=== PATIENT | male | born 1940 | race Caucasian/White ===

== ENCOUNTER 2022-07-07 11:24 | Inpatient (IN) | payer MEDICARE, BC ==
[~2022-07-07] VITALS: Ht 190.5 cm; Wt 54.9 kg
[2022-07-07] MEDS ORDERED: TAZOBACTAM IV ONE (12:00)
[2022-07-07] MEDS ORDERED: PIPERACILLIN IV ONE (12:00)
[2022-07-07] MEDS ORDERED: SODIUM CHLORIDE 0.9% IV ONE (12:00)
[2022-07-07] MEDS ORDERED: Vancomycin IV 1 GM in SODIUM CHLORIDE 0.9% 250ML 250 ML IV ONE (12:00)
[2022-07-07] MEDS ORDERED: ATORVASTATIN CA40 MG (12:01)
[2022-07-07] MEDS ORDERED: LISINOPRIL10 MG (12:01)
[2022-07-07] MEDS ORDERED: PLAVIX75 MG PO (12:01)
[2022-07-07] MEDS ORDERED: CARVEDILOL3.125 MG (12:01)
[2022-07-07] MEDS ORDERED: TRAZODONE HCL50 MG PO (12:01)
[2022-07-07] MEDS ORDERED: FLOMAX0.4 MG (12:01)
[2022-07-07] MEDS ORDERED: CILOSTAZOL50 MG PO (12:01)
[2022-07-07] MEDS ORDERED: SODIUM CHLORIDE FLUSH 10 ML SYR INJ PRN (12:30)
[2022-07-07 13:10] LABS: BASOPHILS % 0.5 % (0.0-1.0); EOSINOPHILS % 0.5 % (0.0-6.0); HEMATOCRIT 27.5 % (38.2-49.6); HEMOGLOBIN 8.1 g/dL (14.0-18.0); LYMPHOCYTES # (AUTO) 0.6 (1.0-3.2); LYMPHOCYTES % 7.6 % (18.0-39.1); MEAN CORPUSCULAR HEMOGLOBIN 24.8 pg (28-32); MEAN CORPUSCULAR HGB CONC 29.5 g/dL (31-35); MEAN CORPUSCULAR VOLUME 84.4 fL (81-99); MONOCYTES # (AUTO) 0.6 (0.2-0.8); MONOCYTES % 6.9 % (4.4-11.3); NEUTROPHILS # (AUTO) 6.8 (2.1-6.9); PLATELET COUNT 435 x10e3/uL (140-360); RED BLOOD COUNT 3.26 x10e6/uL (4.3-5.7); RED CELL DISTRIBUTION WIDTH 16.7 % (11.7-14.4)
[2022-07-07] MEDS: Morphine 2mg Syringe 2 MG/ML SYR IV PRN ×2 (13:19→23:15)
[2022-07-07] MEDS: ONDANSETRON HCL INJ 2MG/ML 2ML 2 MG/ML VIAL IV PRN ×2 (13:19→23:15)
[2022-07-07 13:29] LABS: ALANINE AMINOTRANSFERASE 15 IU/L (0-55); ALBUMIN/GLOBULIN RATIO 0.5 (0.8-2.0); ALKALINE PHOSPHATASE 133 IU/L (40-150); ANION GAP 15.3 mmol/L (8-16); BLOOD UREA NITROGEN 7 mg/dL (7-26); BUN/CREATININE RATIO 13 (6-25); CALCIUM 8.2 mg/dL (8.4-10.2); CARBON DIOXIDE 24 mmol/L (22-29); CHLORIDE 100 mmol/L (98-107); CREATINE KINASE 53 IU/L (30-200); CREATININE, SERUM 0.56 mg/dL (0.72-1.25); GLUCOSE 100 mg/dL (74-118); POTASSIUM 4.3 mmol/L (3.5-5.1); SODIUM 135 mmol/L (136-145)
[2022-07-07 13:32] LABS: CLARITY,URINE SL CLOUDY (CLEAR); COLOR,URINE YELLOW (YELLOW); LEUKOCYTE ESTERASE ,URINE SMALL (NEGATIVE); NITRITE,URINE NEGATIVE (NEGATIVE); PROTEIN,URINE DIPSTICK 1+ (NEGATIVE)
[2022-07-07 13:33] LABS: KETONES,URINE 2+ (NEGATIVE)
[2022-07-07 13:36] LABS: CHOL/HDL RATIO 2.7 (3.9-4.7); MAGNESIUM 1.7 MG/DL (1.3-2.1); PHOSPHORUS 2.1 MG/DL (2.3-4.7)
[2022-07-07 13:40] LABS: BACTERIA,URINE MODERATE /HPF; CALCIUM OXALATE CRYSTALS,UR RARE (FEW); EPITHELIAL CELLS,URINE FEW /LPF
[2022-07-07 13:55] LABS: THYROID STIMULATING HORMONE 0.375 uIU/mL (0.350-4.940)
[2022-07-07] MEDS ORDERED: MAGNESIUM SULF 1GRAM/DEXTROSE 100 ML IV ONE (14:45)
[2022-07-07] MEDS ORDERED: POLYETHYLENE GLYCOL 3350 17 GM PACK PO PRN (15:00)
[2022-07-07] MEDS ORDERED: METOPROLOL TARTRATE INJ 1 MG/ML VIAL IV PRN (15:00)
[2022-07-07] MEDS ORDERED: SODIUM PHOSPHATE IN 0.9 % NACL 15 MMOL in SODIUM CHLORIDE 0.9% 250ML 250 ML IV ONE ×4 (16:00→18:15)
[2022-07-07] MEDS ORDERED: SODIUM CHLORIDE 0.9% 250ML 250 ML ONE (16:19)
[2022-07-07 16:33] VITALS: BP 115/65
[2022-07-07] MEDS: FAMOTIDINE 20 MG/2 ML VIAL IV SCH (17:00)
[2022-07-07] MEDS: DOCUSATE SODIUM 100 MG CAP PO SCH (17:00)
[2022-07-07 17:29] VITALS: BP 115/65
[2022-07-07 20:00] VITALS: BP 101/50
[2022-07-07 20:47] LABS: CREATINE KINASE MB 4.8 ng/mL (0-5.0)
[2022-07-08] VITALS (7 sets, daily range): BP systolic 83–119; BP diastolic 52–68
[2022-07-08] MEDS ORDERED: CHOLESTYRAMINE 4 GM PACKET PO PRN
[2022-07-08 07:25] LABS: ALBUMIN 1.5 g/dL (3.5-5.0); ALBUMIN/GLOBULIN RATIO 0.5 (0.8-2.0); CALCIUM 7.4 mg/dL (8.4-10.2); CREATININE, SERUM 0.5 mg/dL (0.72-1.25)
[2022-07-08 07:38] LABS: FERRITIN 67.27 ng/mL (21.81-274.66)
[2022-07-08 07:51] LABS: CREATINE KINASE MB 4.1 ng/mL (0-5.0)
[2022-07-08 08:08] LABS: BASOPHILS # (AUTO) 0.1 (0.0-0.1); BASOPHILS % 1.2 % (0.0-1.0); EOSINOPHILS # (AUTO) 0.1 (0.0-0.4); HEMATOCRIT 23.8 % (38.2-49.6); LYMPHOCYTES # (AUTO) 0.9 (1.0-3.2); LYMPHOCYTES % 20.8 % (18.0-39.1); MEAN CORPUSCULAR HEMOGLOBIN 24.4 pg (28-32); MEAN CORPUSCULAR HGB CONC 29.4 g/dL (31-35); MEAN CORPUSCULAR VOLUME 82.9 fL (81-99); MONOCYTES # (AUTO) 0.4 (0.2-0.8); MONOCYTES % 9.8 % (4.4-11.3); NEUTROPHILS # (AUTO) 2.8 (2.1-6.9); NEUTROPHILS % 64.5 % (38.7-80.0); PLATELET COUNT 339 x10e3/uL (140-360); RED BLOOD COUNT 2.87 x10e6/uL (4.3-5.7); RED CELL DISTRIBUTION WIDTH 16.9 % (11.7-14.4)
[2022-07-08] MEDS: DOCUSATE SODIUM 100 MG CAP PO SCH ×2 (09:21→18:24)
[2022-07-08] MEDS: LISINOPRIL 10 MG TAB PO SCH (09:22)
[2022-07-08] MEDS: CILOSTAZOL 100 MG TAB PO SCH (09:22)
[2022-07-08] MEDS: TAMSULOSIN HCL 0.4 MG CAP PO SCH (09:22)
[2022-07-08] MEDS: CLOPIDOGREL BISULFATE 75 MG TAB PO SCH (09:23)
[2022-07-08] MEDS: FAMOTIDINE 20 MG/2 ML VIAL IV SCH ×2 (09:23→18:24)
[2022-07-08] MEDS: ONDANSETRON HCL INJ 2MG/ML 2ML 2 MG/ML VIAL IV PRN ×2 (09:24→22:08)
[2022-07-08] MEDS: CARVEDILOL 3.125 MG TAB PO SCH ×2 (09:24→17:00)
[2022-07-08] MEDS: Morphine 2mg Syringe 2 MG/ML SYR IV PRN ×2 (09:25→22:08)
[2022-07-08 09:46] LABS: LYMPHOCYTES % (MANUAL) 20 % (19-48); MONOCYTES % (MANUAL) 6 % (3.4-9.0); NEUTROPHILS % (MANUAL) 74 % (40-74); PLATELET ESTIMATE ADEQUATE; PLATELET MORPHOLOGY COMMENT NORMAL; RBC MORPHOLOGY COMMENT NORMAL
[2022-07-08] MEDS: SODIUM FERRIC GLUCONATE COMPLX 125 MG in SODIUM CHLORIDE 0.9% 100 ML IV SCH (21:00)
[2022-07-08] MEDS: ATORVASTATIN 40 MG TAB PO SCH (22:08)
[2022-07-08] MEDS: TRAZODONE HCL 50 MG TAB PO SCH (22:09)
[2022-07-09] VITALS (8 sets, daily range): BP systolic 100–115; BP diastolic 56–83
[2022-07-09] MEDS: Morphine 2mg Syringe 2 MG/ML SYR IV PRN ×3 (05:15→16:44)
[2022-07-09] MEDS: ONDANSETRON HCL INJ 2MG/ML 2ML 2 MG/ML VIAL IV PRN (05:15)
[2022-07-09 06:11] LABS: BASOPHILS # (AUTO) 0.1 (0.0-0.1); BASOPHILS % 0.9 % (0.0-1.0); EOSINOPHILS # (AUTO) 0.2 (0.0-0.4); HEMATOCRIT 22.8 % (38.2-49.6); LYMPHOCYTES # (AUTO) 1.1 (1.0-3.2); LYMPHOCYTES % 18.5 % (18.0-39.1); MEAN CORPUSCULAR HGB CONC 30.3 g/dL (31-35); MEAN CORPUSCULAR VOLUME 82.6 fL (81-99); MONOCYTES # (AUTO) 0.5 (0.2-0.8); MONOCYTES % 9.1 % (4.4-11.3); NEUTROPHILS # (AUTO) 3.9 (2.1-6.9); NEUTROPHILS % 68.2 % (38.7-80.0); PLATELET COUNT 354 x10e3/uL (140-360); RED BLOOD COUNT 2.76 x10e6/uL (4.3-5.7)
[2022-07-09 06:14] LABS: HEMOGLOBIN 6.9 g/dL (14.0-18.0)
[2022-07-09 06:35] LABS: ANION GAP 9.8 mmol/L (8-16); CALCIUM 7.8 mg/dL (8.4-10.2); CREATININE, SERUM 0.52 mg/dL (0.72-1.25); POTASSIUM 3.8 mmol/L (3.5-5.1)
[2022-07-09] MEDS: CARVEDILOL 3.125 MG TAB PO SCH ×2 (09:26→16:52)
[2022-07-09] MEDS: FAMOTIDINE 20 MG/2 ML VIAL IV SCH ×2 (09:26→16:51)
[2022-07-09] MEDS: CILOSTAZOL 100 MG TAB PO SCH (09:27)
[2022-07-09] MEDS: DOCUSATE SODIUM 100 MG CAP PO SCH ×2 (09:27→16:52)
[2022-07-09] MEDS: TAMSULOSIN HCL 0.4 MG CAP PO SCH (09:27)
[2022-07-09] MEDS: LISINOPRIL 10 MG TAB PO SCH (09:27)
[2022-07-09] MEDS: CLOPIDOGREL BISULFATE 75 MG TAB PO SCH (09:27)
[2022-07-09] MEDS: SODIUM FERRIC GLUCONATE COMPLX 125 MG in SODIUM CHLORIDE 0.9% 100 ML IV SCH (10:28)
[2022-07-09] MEDS ORDERED: SODIUM CHLORIDE 0.9% 250ML 250 ML IV ONE (11:15)
[2022-07-09] MEDS ORDERED: SODIUM CHLORIDE 0.9% 250ML 250 ML ONE ×2 (15:04→23:09)
[2022-07-09] MEDS: TRAZODONE HCL 50 MG TAB PO SCH (21:37)
[2022-07-09] MEDS: ATORVASTATIN 40 MG TAB PO SCH (21:37)
[2022-07-10 01:45] VITALS: BP 125/63
[2022-07-10] MEDS: Morphine 2mg Syringe 2 MG/ML SYR IV PRN ×3 (04:17→17:00)
[2022-07-10 08:09] LABS: BASOPHILS # (AUTO) 0.1 (0.0-0.1); BASOPHILS % 1.1 % (0.0-1.0); EOSINOPHILS # (AUTO) 0.2 (0.0-0.4); EOSINOPHILS % 4.1 % (0.0-6.0); HEMATOCRIT 24.9 % (38.2-49.6); HEMOGLOBIN 7.5 g/dL (14.0-18.0); LYMPHOCYTES # (AUTO) 0.8 (1.0-3.2); LYMPHOCYTES % 18.2 % (18.0-39.1); MEAN CORPUSCULAR HEMOGLOBIN 25.2 pg (28-32); MEAN CORPUSCULAR HGB CONC 30.1 g/dL (31-35); MEAN CORPUSCULAR VOLUME 83.6 fL (81-99); MONOCYTES # (AUTO) 0.5 (0.2-0.8); MONOCYTES % 10.6 % (4.4-11.3); NEUTROPHILS % 65.3 % (38.7-80.0); PLATELET COUNT 326 x10e3/uL (140-360); RED BLOOD COUNT 2.98 x10e6/uL (4.3-5.7); RED CELL DISTRIBUTION WIDTH 16.5 % (11.7-14.4)
[2022-07-10 08:21] VITALS: BP 115/60
[2022-07-10 08:34] LABS: ANION GAP 9.8 mmol/L (8-16); BLOOD UREA NITROGEN < 5 mg/dL (7-26); CALCIUM 7.7 mg/dL (8.4-10.2); CARBON DIOXIDE 25 mmol/L (22-29); CHLORIDE 104 mmol/L (98-107); CREATININE, SERUM 0.48 mg/dL (0.72-1.25); GLUCOSE 77 mg/dL (74-118); POTASSIUM 3.8 mmol/L (3.5-5.1); SODIUM 135 mmol/L (136-145)
[2022-07-10 08:35] VITALS: BP 115/60
[2022-07-10 08:39] LABS: BUN/CREATININE RATIO 10 (6-25)
[2022-07-10] MEDS: TAMSULOSIN HCL 0.4 MG CAP PO SCH (08:49)
[2022-07-10] MEDS: LISINOPRIL 10 MG TAB PO SCH (08:49)
[2022-07-10] MEDS: FAMOTIDINE 20 MG/2 ML VIAL IV SCH ×2 (08:50→16:54)
[2022-07-10] MEDS: CLOPIDOGREL BISULFATE 75 MG TAB PO SCH (08:50)
[2022-07-10] MEDS: CILOSTAZOL 100 MG TAB PO SCH (08:50)
[2022-07-10] MEDS: DOCUSATE SODIUM 100 MG CAP PO SCH ×2 (08:50→17:00)
[2022-07-10] MEDS: CARVEDILOL 3.125 MG TAB PO SCH ×2 (08:50→16:55)
[2022-07-10] MEDS: SODIUM FERRIC GLUCONATE COMPLX 125 MG in SODIUM CHLORIDE 0.9% 100 ML IV SCH (08:51)
[2022-07-10 12:17] VITALS: BP 97/56
[2022-07-10 16:24] VITALS: BP 95/69
[2022-07-10] MEDS: ATORVASTATIN 40 MG TAB PO SCH (21:19)
[2022-07-10] MEDS: TRAZODONE HCL 50 MG TAB PO SCH (21:20)
[2022-07-10] MEDS: ACETAMINOPHEN 325 MG TAB PO PRN (23:08)
[2022-07-11] VITALS (8 sets, daily range): BP systolic 95–129; BP diastolic 18–85
[2022-07-11] MEDS: Morphine 2mg Syringe 2 MG/ML SYR IV PRN ×4 (04:53→21:21)
[2022-07-11] MEDS: ONDANSETRON HCL INJ 2MG/ML 2ML 2 MG/ML VIAL IV PRN ×4 (04:53→21:21)
[2022-07-11] MEDS: CARVEDILOL 3.125 MG TAB PO SCH ×2 (09:00→17:00)
[2022-07-11] MEDS: LISINOPRIL 10 MG TAB PO SCH (09:00)
[2022-07-11] MEDS: TAMSULOSIN HCL 0.4 MG CAP PO SCH (09:14)
[2022-07-11] MEDS: CILOSTAZOL 100 MG TAB PO SCH (09:14)
[2022-07-11] MEDS: CLOPIDOGREL BISULFATE 75 MG TAB PO SCH (09:14)
[2022-07-11] MEDS: DOCUSATE SODIUM 100 MG CAP PO SCH ×2 (09:15→17:00)
[2022-07-11] MEDS: FAMOTIDINE 20 MG/2 ML VIAL IV SCH ×2 (09:15→18:00)
[2022-07-11] MEDS: SODIUM FERRIC GLUCONATE COMPLX 125 MG in SODIUM CHLORIDE 0.9% 100 ML IV SCH (09:16)
[2022-07-11] MEDS: TRAZODONE HCL 50 MG TAB PO SCH (21:09)
[2022-07-11] MEDS: ATORVASTATIN 40 MG TAB PO SCH (21:09)
[2022-07-11] MEDS: ACETAMINOPHEN 325 MG TAB PO PRN (23:54)
[2022-07-12] VITALS (7 sets, daily range): BP systolic 95–167; BP diastolic 50–102
[2022-07-12] MEDS: Morphine 2mg Syringe 2 MG/ML SYR IV PRN ×3 (05:06→15:19)
[2022-07-12] MEDS: ONDANSETRON HCL INJ 2MG/ML 2ML 2 MG/ML VIAL IV PRN (05:06)
[2022-07-12 06:27] LABS: BASOPHILS % 0.9 % (0.0-1.0); EOSINOPHILS # (AUTO) 0.2 (0.0-0.4); EOSINOPHILS % 3.6 % (0.0-6.0); HEMOGLOBIN 7.5 g/dL (14.0-18.0); LYMPHOCYTES # (AUTO) 0.8 (1.0-3.2); LYMPHOCYTES % 17.8 % (18.0-39.1); MEAN CORPUSCULAR HEMOGLOBIN 26.8 pg (28-32); MEAN CORPUSCULAR HGB CONC 31.3 g/dL (31-35); MEAN CORPUSCULAR VOLUME 85.7 fL (81-99); MONOCYTES # (AUTO) 0.5 (0.2-0.8); MONOCYTES % 10.7 % (4.4-11.3); NEUTROPHILS # (AUTO) 3.1 (2.1-6.9); NEUTROPHILS % 66.6 % (38.7-80.0); PLATELET COUNT 251 x10e3/uL (140-360); RED CELL DISTRIBUTION WIDTH 17.7 % (11.7-14.4)
[2022-07-12 06:55] LABS: ANION GAP 7.7 mmol/L (8-16); CALCIUM 7.7 mg/dL (8.4-10.2); CREATININE, SERUM 0.52 mg/dL (0.72-1.25); POTASSIUM 3.7 mmol/L (3.5-5.1)
[2022-07-12] MEDS: LISINOPRIL 10 MG TAB PO SCH (09:00)
[2022-07-12] MEDS: DOCUSATE SODIUM 100 MG CAP PO SCH ×2 (09:00→18:02)
[2022-07-12] MEDS: FAMOTIDINE 20 MG/2 ML VIAL IV SCH ×2 (09:07→17:30)
[2022-07-12] MEDS: TAMSULOSIN HCL 0.4 MG CAP PO SCH (09:08)
[2022-07-12] MEDS: CILOSTAZOL 100 MG TAB PO SCH (09:08)
[2022-07-12] MEDS: CLOPIDOGREL BISULFATE 75 MG TAB PO SCH (09:08)
[2022-07-12] MEDS: CARVEDILOL 3.125 MG TAB PO SCH ×2 (09:09→17:30)
[2022-07-12] MEDS: BALSAM PERU/CASTOR OIL 60 GM OINT...G. TP SCH (09:09)
[2022-07-12] MEDS: SODIUM FERRIC GLUCONATE COMPLX 125 MG in SODIUM CHLORIDE 0.9% 100 ML IV SCH (09:09)
[2022-07-12] MEDS ORDERED: IOPAMIDOL 370 MG/ML 100 ML INFUS..BTL INJ ONE (13:10)
[2022-07-12] MEDS ORDERED: SODIUM CHLORIDE 0.9% 100 ML ONE (13:10)
[2022-07-12] MEDS: TRAZODONE HCL 50 MG TAB PO SCH (21:27)
[2022-07-12] MEDS: ATORVASTATIN 40 MG TAB PO SCH (21:28)
[2022-07-13] VITALS (10 sets, daily range): BP systolic 99–167; BP diastolic 50–102
[2022-07-13] MEDS ORDERED: PIPERACILLIN/TAZOBACTAM SOD 2.25 GM VIAL ONE (05:42)
[2022-07-13] MEDS: Morphine 2mg Syringe 2 MG/ML SYR IV PRN ×2 (08:18→17:40)
[2022-07-13] MEDS: CLOPIDOGREL BISULFATE 75 MG TAB PO SCH (08:19)
[2022-07-13] MEDS: DOCUSATE SODIUM 100 MG CAP PO SCH ×2 (08:19→17:34)
[2022-07-13] MEDS: CILOSTAZOL 100 MG TAB PO SCH (08:19)
[2022-07-13] MEDS: FAMOTIDINE 20 MG/2 ML VIAL IV SCH ×2 (08:19→17:35)
[2022-07-13] MEDS: TAMSULOSIN HCL 0.4 MG CAP PO SCH (08:19)
[2022-07-13] MEDS: BALSAM PERU/CASTOR OIL 60 GM OINT...G. TP SCH (08:20)
[2022-07-13] MEDS: LISINOPRIL 10 MG TAB PO SCH (08:20)
[2022-07-13] MEDS: CARVEDILOL 3.125 MG TAB PO SCH ×2 (08:20→17:00)
[2022-07-13] MEDS: SODIUM FERRIC GLUCONATE COMPLX 125 MG in SODIUM CHLORIDE 0.9% 100 ML IV SCH (10:47)
[2022-07-13] MEDS: TRAZODONE HCL 50 MG TAB PO SCH (21:32)
[2022-07-13] MEDS: ATORVASTATIN 40 MG TAB PO SCH (21:33)
[2022-07-13] MEDS ORDERED: SODIUM CHLORIDE 0.9% 1000ML 1,000 ML IV SCH (23:30)
[2022-07-14] VITALS (30 sets, daily range): BP systolic 79–136; BP diastolic 43–97
[2022-07-14] MEDS: Morphine 2mg Syringe 2 MG/ML SYR IV PRN (04:35)
[2022-07-14 06:27] LABS: BASOPHILS % 0.9 % (0.0-1.0); EOSINOPHILS # (AUTO) 0.2 (0.0-0.4); EOSINOPHILS % 4.8 % (0.0-6.0); LYMPHOCYTES % 28.7 % (18.0-39.1); MEAN CORPUSCULAR HEMOGLOBIN 25.6 pg (28-32); MEAN CORPUSCULAR HGB CONC 29.6 g/dL (31-35); MEAN CORPUSCULAR VOLUME 86.3 fL (81-99); MONOCYTES # (AUTO) 0.5 (0.2-0.8); MONOCYTES % 14.1 % (4.4-11.3); NEUTROPHILS # (AUTO) 1.7 (2.1-6.9); NEUTROPHILS % 51.2 % (38.7-80.0); PLATELET COUNT 238 x10e3/uL (140-360); RED BLOOD COUNT 3.13 x10e6/uL (4.3-5.7); RED CELL DISTRIBUTION WIDTH 18.6 % (11.7-14.4)
[2022-07-14 06:38] LABS: INR 1.18; PROTHROMBIN TIME 15.5 seconds (11.9-14.5)
[2022-07-14 06:51] LABS: ALBUMIN 1.7 g/dL (3.5-5.0); ALBUMIN/GLOBULIN RATIO 0.6 (0.8-2.0); ANION GAP 6.7 mmol/L (8-16); CREATININE, SERUM 0.49 mg/dL (0.72-1.25); POTASSIUM 3.7 mmol/L (3.5-5.1)
[2022-07-14 07:03] LABS: MAGNESIUM 1.7 MG/DL (1.3-2.1); PHOSPHORUS 2.1 MG/DL (2.3-4.7)
[2022-07-14] MEDS ORDERED: HEPARIN SOD (PORCINE) 1000 UNIT/ML 30ML ONE (08:45)
[2022-07-14] MEDS ORDERED: LIDOCAINE HCL 2% LOCAL 20 ML VIAL ONE (08:45)
[2022-07-14] MEDS ORDERED: HEPARIN SOD/SOD CHLORIDE 2,000 ML ONE (08:45)
[2022-07-14] MEDS ORDERED: SODIUM CHLORIDE 0.9% 1000ML 1,000 ML ONE ×2 (08:46→10:11)
[2022-07-14] MEDS ORDERED: NITROGLYCERIN/D5W 200 MCG/ML 250 ML ONE (08:46)
[2022-07-14] MEDS ORDERED: IOPAMIDOL 610MG/1ML 300 MG/ML VIAL IV ONE ×3 (08:47→10:29)
[2022-07-14] MEDS: CARVEDILOL 3.125 MG TAB PO SCH ×2 (09:00→17:00)
[2022-07-14] MEDS: ASCORBIC ACID 500 MG TAB PO SCH (09:00)
[2022-07-14] MEDS: CILOSTAZOL 100 MG TAB PO SCH (09:00)
[2022-07-14] MEDS: SODIUM FERRIC GLUCONATE COMPLX 125 MG in SODIUM CHLORIDE 0.9% 100 ML IV SCH (09:00)
[2022-07-14] MEDS: MAGNESIUM OXIDE 400 MG TAB PO SCH ×2 (09:00→17:00)
[2022-07-14] MEDS: OYST-CAL-D 500MG TABLET PO SCH (09:00)
[2022-07-14] MEDS: MULTIVITAMINS/MINERALS TAB PO SCH (09:00)
[2022-07-14] MEDS: FAMOTIDINE 20 MG/2 ML VIAL IV SCH ×2 (09:00→17:00)
[2022-07-14] MEDS: LISINOPRIL 10 MG TAB PO SCH (09:00)
[2022-07-14] MEDS: TAMSULOSIN HCL 0.4 MG CAP PO SCH (09:00)
[2022-07-14] MEDS: DOCUSATE SODIUM 100 MG CAP PO SCH ×2 (09:00→17:00)
[2022-07-14] MEDS: BALSAM PERU/CASTOR OIL 60 GM OINT...G. TP SCH (09:00)
[2022-07-14] MEDS: ZINC SULFATE 50 MG CAP PO SCH (09:00)
[2022-07-14] MEDS ORDERED: FENTANYL CITRATE/PF 100MCG/2 ML INJ ONE (09:14)
[2022-07-14] MEDS ORDERED: MIDAZOLAM HCL 2 MG/2 ML VIAL ONE ×2 (09:14→10:21)
[2022-07-14] MEDS ORDERED: MAGNESIUM SULF 1GRAM/DEXTROSE 100 ML IV ONE (10:00)
[2022-07-14] MEDS ORDERED: VERAPAMIL HCL 2.5 MG/ML 2 ML VIAL ONE (10:11)
[2022-07-14] MEDS ORDERED: CLOPIDOGREL BISULFATE 75 MG TAB ONE (10:54)
[2022-07-14] MEDS ORDERED: POTASSIUM PHOSPHATE 15 MM in SODIUM CHLORIDE 0.9% 250ML 250 ML IV ONE (11:00)
[2022-07-14] MEDS ORDERED: HYDROMORPHONE 1MG/1ML INJ IV ONE (11:30)
[2022-07-14] MEDS ORDERED: SODIUM CHLORIDE 0.9% 1000ML 1,000 ML IV SCH (11:45)
[2022-07-14] MEDS ORDERED: ONDANSETRON HCL INJ 2MG/ML 2ML 2 MG/ML VIAL IV PRN (11:45)
[2022-07-14] MEDS ORDERED: HYDROMORPHONE 2MG/ML 2 MG/ML ML ONE (17:54)
[2022-07-14] MEDS ORDERED: SODIUM CHLORIDE 0.9% 250ML 250 ML IV ONE (21:00)
[2022-07-14] MEDS ORDERED: FUROSEMIDE INJ 10 MG/ML 2 ML VIAL IV ONE (21:30)
[2022-07-14 21:41] LABS: CALCIUM 8.2 mg/dL (8.4-10.2); CREATININE, SERUM 0.5 mg/dL (0.72-1.25)
[2022-07-14] MEDS ORDERED: ALTEPLASE RECOMBINANT 2 MG/2 ML VIAL IV ONE (21:45)
[2022-07-14 21:51] LABS: BASOPHILS % 0.3 % (0.0-1.0); EOSINOPHILS # (AUTO) 0.1 (0.0-0.4); EOSINOPHILS % 0.5 % (0.0-6.0); HEMATOCRIT 26.1 % (38.2-49.6); HEMOGLOBIN 7.9 g/dL (14.0-18.0); LYMPHOCYTES # (AUTO) 0.9 (1.0-3.2); LYMPHOCYTES % 5.9 % (18.0-39.1); MEAN CORPUSCULAR HEMOGLOBIN 25.6 pg (28-32); MEAN CORPUSCULAR HGB CONC 30.3 g/dL (31-35); MEAN CORPUSCULAR VOLUME 84.7 fL (81-99); MONOCYTES # (AUTO) 0.8 (0.2-0.8); MONOCYTES % 5.1 % (4.4-11.3); NEUTROPHILS % 87.7 % (38.7-80.0); PLATELET COUNT 317 x10e3/uL (140-360); RED BLOOD COUNT 3.08 x10e6/uL (4.3-5.7); RED CELL DISTRIBUTION WIDTH 18.9 % (11.7-14.4)
[2022-07-14] MEDS ORDERED: SODIUM CHLORIDE 0.9% 250ML 250 ML ONE (23:44)
[2022-07-15] VITALS (65 sets, daily range): BP systolic 73–118; BP diastolic 34–89
[2022-07-15] MEDS: TRAZODONE HCL 50 MG TAB PO SCH ×2 (00:19→21:46)
[2022-07-15] MEDS: ATORVASTATIN 40 MG TAB PO SCH ×2 (00:19→21:46)
[2022-07-15 02:17] LABS: HEMATOCRIT 26.5 % (38.2-49.6); HEMOGLOBIN 8.2 g/dL (14.0-18.0)
[2022-07-15 05:20] LABS: BASOPHILS # (AUTO) 0.1 (0.0-0.1); BASOPHILS % 0.3 % (0.0-1.0); HEMATOCRIT 25.9 % (38.2-49.6); LYMPHOCYTES # (AUTO) 0.6 (1.0-3.2); LYMPHOCYTES % 3.1 % (18.0-39.1); MEAN CORPUSCULAR HEMOGLOBIN 26.4 pg (28-32); MEAN CORPUSCULAR HGB CONC 30.9 g/dL (31-35); MEAN CORPUSCULAR VOLUME 85.5 fL (81-99); MONOCYTES # (AUTO) 0.6 (0.2-0.8); NEUTROPHILS # (AUTO) 17.5 (2.1-6.9); NEUTROPHILS % 93.1 % (38.7-80.0); RED BLOOD COUNT 3.03 x10e6/uL (4.3-5.7); RED CELL DISTRIBUTION WIDTH 18.4 % (11.7-14.4)
[2022-07-15] MEDS: HYDROCODONE/APAP 5MG-325MG TAB PO PRN (05:20)
[2022-07-15 05:33] LABS: PLATELET COUNT 196 x10e3/uL (140-360)
[2022-07-15] MEDS ORDERED: DEXTROSE 5% 50ML 50 ML IV ONE (05:36)
[2022-07-15 05:47] LABS: ANION GAP 12.1 mmol/L (8-16); CALCIUM 7.7 mg/dL (8.4-10.2); CREATININE, SERUM 0.54 mg/dL (0.72-1.25); POTASSIUM 4.1 mmol/L (3.5-5.1)
[2022-07-15] MEDS: VASOPRESSIN 60 UNIT in DEXTROSE 5% 50ML 57 ML IV SCH (05:55)
[2022-07-15 07:40] LABS: PLATELET ESTIMATE ADEQUATE; PLATELET MORPHOLOGY COMMENT NORMAL
[2022-07-15] MEDS: CILOSTAZOL 100 MG TAB PO SCH (08:08)
[2022-07-15] MEDS: MULTIVITAMINS/MINERALS TAB PO SCH (08:08)
[2022-07-15] MEDS: ASCORBIC ACID 500 MG TAB PO SCH ×3 (08:08→17:12)
[2022-07-15] MEDS: OYST-CAL-D 500MG TABLET PO SCH ×3 (08:08→17:12)
[2022-07-15] MEDS: ASPIRIN 325 MG TAB PO SCH (08:08)
[2022-07-15] MEDS: ZINC SULFATE 50 MG CAP PO SCH ×3 (08:08→17:12)
[2022-07-15] MEDS: MAGNESIUM OXIDE 400 MG TAB PO SCH ×3 (08:09→17:12)
[2022-07-15] MEDS: FAMOTIDINE 20 MG/2 ML VIAL IV SCH ×3 (08:09→17:13)
[2022-07-15] MEDS: DOCUSATE SODIUM 100 MG CAP PO SCH ×3 (08:09→17:12)
[2022-07-15] MEDS: TAMSULOSIN HCL 0.4 MG CAP PO SCH (08:09)
[2022-07-15] MEDS: CLOPIDOGREL BISULFATE 75 MG TAB PO SCH (08:09)
[2022-07-15] MEDS: BALSAM PERU/CASTOR OIL 60 GM OINT...G. TP SCH (08:10)
[2022-07-15] MEDS: LISINOPRIL 10 MG TAB PO SCH (08:10)
[2022-07-15] MEDS: CARVEDILOL 3.125 MG TAB PO SCH ×2 (08:12→17:00)
[2022-07-15] MEDS: SODIUM FERRIC GLUCONATE COMPLX 125 MG in SODIUM CHLORIDE 0.9% 100 ML IV SCH (09:14)
[2022-07-15 16:41] LABS: HEMATOCRIT 23.1 % (38.2-49.6); HEMOGLOBIN 7.2 g/dL (14.0-18.0)
[2022-07-16] VITALS (56 sets, daily range): BP systolic 94–121; BP diastolic 49–72
[2022-07-16] MEDS: VASOPRESSIN 60 UNIT in DEXTROSE 5% 50ML 57 ML IV SCH ×2 (01:47→22:46)
[2022-07-16 06:56] LABS: BASOPHILS % 0.2 % (0.0-1.0); EOSINOPHILS % 0.2 % (0.0-6.0); HEMATOCRIT 23.3 % (38.2-49.6); HEMOGLOBIN 7.2 g/dL (14.0-18.0); LYMPHOCYTES # (AUTO) 1.1 (1.0-3.2); LYMPHOCYTES % 9.4 % (18.0-39.1); MEAN CORPUSCULAR HEMOGLOBIN 26.4 pg (28-32); MEAN CORPUSCULAR HGB CONC 30.9 g/dL (31-35); MEAN CORPUSCULAR VOLUME 85.3 fL (81-99); MONOCYTES % 8.5 % (4.4-11.3); NEUTROPHILS # (AUTO) 9.1 (2.1-6.9); NEUTROPHILS % 81.3 % (38.7-80.0); PLATELET COUNT 209 x10e3/uL (140-360); RED BLOOD COUNT 2.73 x10e6/uL (4.3-5.7); RED CELL DISTRIBUTION WIDTH 19.8 % (11.7-14.4)
[2022-07-16 07:23] LABS: ALBUMIN 1.6 g/dL (3.5-5.0); ALBUMIN/GLOBULIN RATIO 0.6 (0.8-2.0); ANION GAP 8.9 mmol/L (8-16); CREATININE, SERUM 0.55 mg/dL (0.72-1.25); POTASSIUM 3.9 mmol/L (3.5-5.1)
[2022-07-16] MEDS: BALSAM PERU/CASTOR OIL 60 GM OINT...G. TP SCH (09:00)
[2022-07-16] MEDS: FAMOTIDINE 20 MG/2 ML VIAL IV SCH ×2 (09:22→17:24)
[2022-07-16] MEDS: OYST-CAL-D 500MG TABLET PO SCH ×2 (09:22→17:25)
[2022-07-16] MEDS: CARVEDILOL 3.125 MG TAB PO SCH (09:23)
[2022-07-16] MEDS: ZINC SULFATE 50 MG CAP PO SCH ×2 (09:24→17:25)
[2022-07-16] MEDS: DOCUSATE SODIUM 100 MG CAP PO SCH ×2 (09:24→17:24)
[2022-07-16] MEDS: TAMSULOSIN HCL 0.4 MG CAP PO SCH (09:24)
[2022-07-16] MEDS: CILOSTAZOL 100 MG TAB PO SCH (09:24)
[2022-07-16] MEDS: MULTIVITAMINS/MINERALS TAB PO SCH (09:25)
[2022-07-16] MEDS: MAGNESIUM OXIDE 400 MG TAB PO SCH ×2 (09:25→17:25)
[2022-07-16] MEDS: ASPIRIN 325 MG TAB PO SCH (09:25)
[2022-07-16] MEDS: SODIUM FERRIC GLUCONATE COMPLX 125 MG in SODIUM CHLORIDE 0.9% 100 ML IV SCH (09:26)
[2022-07-16] MEDS: CLOPIDOGREL BISULFATE 75 MG TAB PO SCH (09:26)
[2022-07-16] MEDS: ASCORBIC ACID 500 MG TAB PO SCH ×2 (09:32→17:25)
[2022-07-16] MEDS: ATORVASTATIN 40 MG TAB PO SCH (21:49)
[2022-07-16] MEDS: TRAZODONE HCL 50 MG TAB PO SCH (21:49)
[2022-07-17] VITALS (8 sets, daily range): BP systolic 100–127; BP diastolic 70–78
[2022-07-17] MEDS: ACETAMINOPHEN 325 MG TAB PO PRN (06:15)
[2022-07-17 07:15] LABS: BASOPHILS % 0.5 % (0.0-1.0); EOSINOPHILS # (AUTO) 0.1 (0.0-0.4); EOSINOPHILS % 1.3 % (0.0-6.0); HEMATOCRIT 24.3 % (38.2-49.6); HEMOGLOBIN 7.2 g/dL (14.0-18.0); LYMPHOCYTES # (AUTO) 1.1 (1.0-3.2); LYMPHOCYTES % 13.5 % (18.0-39.1); MEAN CORPUSCULAR HEMOGLOBIN 27.2 pg (28-32); MEAN CORPUSCULAR HGB CONC 29.6 g/dL (31-35); MEAN CORPUSCULAR VOLUME 91.7 fL (81-99); MONOCYTES # (AUTO) 0.9 (0.2-0.8); MONOCYTES % 10.4 % (4.4-11.3); NEUTROPHILS # (AUTO) 6.2 (2.1-6.9); NEUTROPHILS % 73.6 % (38.7-80.0); PLATELET COUNT 208 x10e3/uL (140-360); RED BLOOD COUNT 2.65 x10e6/uL (4.3-5.7); RED CELL DISTRIBUTION WIDTH 20.7 % (11.7-14.4)
[2022-07-17 07:41] LABS: CREATININE, SERUM 0.46 mg/dL (0.72-1.25)
[2022-07-17] MEDS: SODIUM FERRIC GLUCONATE COMPLX 125 MG in SODIUM CHLORIDE 0.9% 100 ML IV SCH (08:53)
[2022-07-17] MEDS: ZINC SULFATE 50 MG CAP PO SCH ×2 (08:55→16:05)
[2022-07-17] MEDS: FAMOTIDINE 20 MG/2 ML VIAL IV SCH ×2 (08:55→16:05)
[2022-07-17] MEDS: CILOSTAZOL 100 MG TAB PO SCH (08:55)
[2022-07-17] MEDS: MAGNESIUM OXIDE 400 MG TAB PO SCH ×2 (08:55→16:05)
[2022-07-17] MEDS: OYST-CAL-D 500MG TABLET PO SCH ×2 (08:55→16:04)
[2022-07-17] MEDS: ASPIRIN 325 MG TAB PO SCH (08:56)
[2022-07-17] MEDS: MULTIVITAMINS/MINERALS TAB PO SCH (08:56)
[2022-07-17] MEDS: TAMSULOSIN HCL 0.4 MG CAP PO SCH (08:56)
[2022-07-17] MEDS: CLOPIDOGREL BISULFATE 75 MG TAB PO SCH (08:56)
[2022-07-17] MEDS: ASCORBIC ACID 500 MG TAB PO SCH ×2 (08:56→16:05)
[2022-07-17] MEDS: DOCUSATE SODIUM 100 MG CAP PO SCH ×2 (08:56→16:05)
[2022-07-17] MEDS: HYDROCODONE/APAP 5MG-325MG TAB PO PRN (10:29)
[2022-07-17] MEDS: METOPROLOL SUCCINATE 25 MG TAB XL PO SCH (10:30)
[2022-07-17] MEDS ORDERED: FUROSEMIDE INJ 10 MG/ML 4 ML VIAL IV ONE (11:00)
[2022-07-17] MEDS: BALSAM PERU/CASTOR OIL 60 GM OINT...G. TP SCH (12:25)
[2022-07-17] MEDS: MIDODRINE 2.5 MG TAB PO SCH ×2 (12:25→16:04)
[2022-07-17] MEDS: ATORVASTATIN 40 MG TAB PO SCH (21:09)
[2022-07-17] MEDS: TRAZODONE HCL 50 MG TAB PO SCH (21:09)
[2022-07-18] VITALS (7 sets, daily range): BP systolic 103–114; BP diastolic 62–75
[2022-07-18] MEDS: MIDODRINE 2.5 MG TAB PO SCH ×3 (08:00→16:58)
[2022-07-18] MEDS: CILOSTAZOL 100 MG TAB PO SCH (09:00)
[2022-07-18] MEDS: ASCORBIC ACID 500 MG TAB PO SCH ×2 (09:00→17:00)
[2022-07-18] MEDS: ZINC SULFATE 50 MG CAP PO SCH ×2 (09:00→16:58)
[2022-07-18] MEDS: OYST-CAL-D 500MG TABLET PO SCH ×2 (09:00→17:00)
[2022-07-18] MEDS: ASPIRIN 81 MG CHEW TAB PO SCH (09:00)
[2022-07-18] MEDS: CLOPIDOGREL BISULFATE 75 MG TAB PO SCH (09:00)
[2022-07-18] MEDS: MAGNESIUM OXIDE 400 MG TAB PO SCH ×2 (09:00→17:00)
[2022-07-18] MEDS: DOCUSATE SODIUM 100 MG CAP PO SCH ×2 (09:00→17:00)
[2022-07-18] MEDS: TAMSULOSIN HCL 0.4 MG CAP PO SCH (09:00)
[2022-07-18] MEDS: MULTIVITAMINS/MINERALS TAB PO SCH (09:00)
[2022-07-18] MEDS: METOPROLOL SUCCINATE 25 MG TAB XL PO SCH (09:00)
[2022-07-18] MEDS: FAMOTIDINE 20 MG/2 ML VIAL IV SCH ×2 (09:30→16:58)
[2022-07-18] MEDS: BALSAM PERU/CASTOR OIL 60 GM OINT...G. TP SCH (09:44)
[2022-07-18] MEDS: LEVOFLOXACIN 500 MG TAB PO SCH (16:30)
[2022-07-18] MEDS: TRAZODONE HCL 50 MG TAB PO SCH (20:50)
[2022-07-18] MEDS: ATORVASTATIN 40 MG TAB PO SCH (20:50)
[2022-07-19 00:20] VITALS: BP 110/46
[2022-07-19 04:00] VITALS: BP 94/52
[2022-07-19 08:00] VITALS: BP 93/55
[2022-07-19] MEDS: MIDODRINE 2.5 MG TAB PO SCH ×2 (08:00→12:00)
[2022-07-19 08:44] VITALS: BP 93/55
[2022-07-19] MEDS: TAMSULOSIN HCL 0.4 MG CAP PO SCH (08:49)
[2022-07-19] MEDS: MULTIVITAMINS/MINERALS TAB PO SCH (08:49)
[2022-07-19] MEDS: DOCUSATE SODIUM 100 MG CAP PO SCH (08:49)
[2022-07-19] MEDS: MAGNESIUM OXIDE 400 MG TAB PO SCH (08:49)
[2022-07-19] MEDS: FAMOTIDINE 20 MG/2 ML VIAL IV SCH (08:49)
[2022-07-19] MEDS: CILOSTAZOL 100 MG TAB PO SCH (08:49)
[2022-07-19] MEDS: CLOPIDOGREL BISULFATE 75 MG TAB PO SCH (08:49)
[2022-07-19] MEDS: OYST-CAL-D 500MG TABLET PO SCH (08:49)
[2022-07-19] MEDS: METOPROLOL SUCCINATE 25 MG TAB XL PO SCH (08:49)
[2022-07-19] MEDS: ASPIRIN 81 MG CHEW TAB PO SCH (08:49)
[2022-07-19] MEDS: ZINC SULFATE 50 MG CAP PO SCH (08:50)
[2022-07-19] MEDS: ASCORBIC ACID 500 MG TAB PO SCH (08:50)
[2022-07-19] MEDS: BALSAM PERU/CASTOR OIL 60 GM OINT...G. TP SCH (08:51)
[2022-07-19] MEDS ORDERED: TOPROL XL25 MG PO (13:34)
[2022-07-19] MEDS ORDERED: ACETAMINOPHEN325 M1 PO (13:34)
[2022-07-19] MEDS ORDERED: MIDODRINE HCL2.5 MG PO (13:34)
[2022-07-19] MEDS ORDERED: PLAVIX75 MG PO (13:34)
[2022-07-19] MEDS ORDERED: CHOLESTYRAMINE L4 GM PO (13:34)
[2022-07-19] MEDS ORDERED: ONDANSETRON ODT4 MG PO (13:34)
[2022-07-19] MEDS ORDERED: HYDROCODON-ACE1 EA11 PO (13:34)
[2022-07-19] MEDS ORDERED: MIRALAX17 GM PO (13:34)
[2022-07-19] MEDS ORDERED: ASPIRIN CHEW81 MG PO (13:34)
[2022-07-19] MEDS ORDERED: VENELEX OINTMEN60 GM TP (13:34)
[2022-07-19] MEDS: LEVOFLOXACIN 500 MG TAB PO SCH (14:00)
[2022-07-19] MEDS ORDERED: ONDANSETRON HCL 4 MG ORAL DISINTEGRATING TAB PO PRN (14:30)
[2022-07-19] MEDS ORDERED: FAMOTIDINE 20 MG TAB PO SCH (16:30)
== END 2022-07-19 15:35 | disposition hospice, home (50) | DRG 919 ==
LOC: ER 11:48 → ERHOLD 12:28 → MED/SURG3 15:47 → ICU 07-14 21:31 → MED/SURG3 07-16 14:17
PROVIDERS: ADMIT Internal Medicine; ATTEND Internal Medicine
PROC: 02HV33Z Insertion of Infusion Device into Superior Vena Cava, Percutaneous Approach (ICD-10-PCS; principal; 2022-07-07)
DX: T81.89XA Other complications of procedures, not elsewhere classified, initial encounter (principal); E43 Unspecified severe protein-calorie malnutrition; Z68.1 Body mass index [BMI] 19.9 or less, adult; L03.116 Cellulitis of left lower limb; N39.0 Urinary tract infection, site not specified; E87.1 Hypo-osmolality and hyponatremia; L10.89 Other pemphigus; I96 Gangrene, not elsewhere classified; L30.3 Infective dermatitis; L25.3 Unspecified contact dermatitis due to other chemical products; N40.0 Benign prostatic hyperplasia without lower urinary tract symptoms; I25.10 Atherosclerotic heart disease of native coronary artery without angina pectoris; I70.0 Atherosclerosis of aorta; E78.5 Hyperlipidemia, unspecified; I11.9 Hypertensive heart disease without heart failure; D64.9 Anemia, unspecified; E83.39 Other disorders of phosphorus metabolism; E83.42 Hypomagnesemia; Z88.2 Allergy status to sulfonamides; Z79.899 Other long term (current) drug therapy; Z20.822 Contact with and (suspected) exposure to COVID-19; Z66 Do not resuscitate; Z95.1 Presence of aortocoronary bypass graft; Z87.891 Personal history of nicotine dependence; Z79.02 Long term (current) use of antithrombotics/antiplatelets; Z89.412 Acquired absence of left great toe; Z89.422 Acquired absence of other left toe(s)
CPT/HCPCS: 0223U; 36247; 36415; 36569; 37220; 37221; 37224; 37225; 37226; 71045; 75625; 75635; 75716; 76937; 80048; 80053; 80061; 80202; 81001; 82550; 82553; 82607; 82728; 82948; 83036; 83540; 83605; 83735; 84100; 84443; 84466; 84484; 85014; 85018; 85025; 85045; 85610; 86850; 86900; 86920; 87040; 87071; 87075; 87086; 87186; 87205; 93005; 93306; 93925; 94799; 99152; 99153; 99252; 99284; C1724; C1725; C1769; C1887; C1894; C2623; J1644; J1940; J2001; J2250; J2270; J2405; J2543; J2916; J2997; J3475; J7030; J7050; P9016; Q9967